=== PATIENT | female | born 1975 | race Native Hawaiian/Other Pacific Islander ===

== ENCOUNTER 2017-04-06 01:29 | Emergency (ER) | payer OTHER ==
[2017-04-06 01:29] VITALS: BMI 23.9
[2017-04-06 01:46] VITALS: TEMP 98.6; O2SAT 100
--- NOTE | 2017-04-06 02:49 | C.PDOC ---
History Of Present Illness 41 y/o female presents to ED with c/o diffuse itchy rash since last night. Patient states she took Claritin 2 hours prior to arrival, without relief. She notes that she had a similar episode a few years ago. No known allergen. No new food or medication. Denies intraoral swelling, difficulty swallowing, SOB, nausea, vomiting, or other associated symptoms. Time Seen by Provider: 04/06/17 01:36 Chief Complaint (Nursing): Allergic Reaction History Per: Patient History/Exam Limitations: no limitations Onset/Duration Of Symptoms: Hrs Current Symptoms Are (Timing): Still Present Associated Symptoms: Skin Rash. denies: Dizziness, Redness, Chest Pain Home/EMS Treatment: denies: Benadryl Recent travel outside of the [place]: No Past Medical History Reviewed: Historical Data, Nursing Documentation, Vital Signs Vital Signs: Last Vital Signs Temp 98.6 F 04/06/17 03:27 Pulse 70 04/06/17 03:27 Resp 20 04/06/17 03:27 BP 126/80 04/06/17 03:27 Pulse Ox 100 04/06/17 03:27 - Medical History PMH: No Chronic Diseases - [facility] Procedures BREAST DX PROCEDURE NEC (07/07/14) EXCISE AXILLARY NODE (08/20/14) PERCUTAN NEEDLE BIOPSY OF BREAST (07/07/14) SUBTOTAL MASTECTOMY (10/01/14) X-RAY NEC AND NOS (07/07/14) Family History: States: Unknown Family Hx - Social History Hx Alcohol Use: No Hx Substance Use: No - Immunization History Hx Tetanus Toxoid Vaccination: No Hx Influenza Vaccination: No Hx Pneumococcal Vaccination: No Review Of Systems Except As Marked, All Systems Reviewed And Found Negative. Constitutional: Negative for: Fever, Chills ENT: Negative for: Mouth Pain, Mouth Swelling, Throat Pain, Throat Swelling Respiratory: Negative for: Cough, Shortness of Breath, Wheezing Gastrointestinal: Negative for: Nausea, Vomiting, Abdominal Pain Skin: Positive for: Rash Neurological: Negative for: Weakness, Numbness, Headache, Dizziness Physical Exam - Physical Exam Appears: Non-toxic, No Acute Distress Skin: Warm, Dry, Rash (diffuse erythematous blanching maculopapular rash) Head: Atraumatic, Normacephalic Eye(s): bilateral: Normal Inspection, EOMI Nose: Normal Oral Mucosa: Moist Tongue: No Swelling Lips: Normal Appearing, No Swelling Gingiva: No Swelling Throat: Normal, No Erythema, No Exudate, No Drooling, No Mass Neck: Supple Chest: Symmetrical Cardiovascular: Rhythm Regular Respiratory: Normal Breath Sounds, No Accessory Muscle Use, No Rales, No Rhonchi , No Stridor, No Wheezing Gastrointestinal/Abdominal: Soft, No Tenderness, No Guarding, No Rebound Back: Normal Inspection Extremity: Normal ROM, Capillary Refill (< 2 sec. ) Neurological/Psych: Oriented x3, Normal Speech, Normal Cognition ED Course And Treatment O2 Sat by Pulse Oximetry: 100 (RA) Pulse Ox Interpretation: Normal Progress Note: Treated with Benadryl, Pepcid, and Prednisone. On reassessment, patient is resting comfortably, with no shortness of breath, intra-oral swelling , or stridor. Patient reports improvement of pruritis. Patient advised to avoid potential allergens and to follow up with physician in 1-2 days. Disposition - Disposition Disposition: HOME/ ROUTINE Disposition Time: 02:48 Condition: STABLE Additional Instructions: Follow up with your primary medical doctor or clinic in 2-5 days for further evaluation. Take medications as prescribed. Return to the emergency department at any time if symptoms persist or worsen. Prescriptions: DiphenhydrAMINE [Benadryl] 25 mg PO Q6 #20 cap predniSONE [Prednisone] 40 mg PO DAILY #8 tab Instructions: Urticaria (ED) - Clinical Impression Clinical Impression: Rash, Allergic urticaria - PA / [employer] / Resident Statement MD/DO has reviewed & agrees with the documentation as recorded. - Scribe Statement The provider has reviewed the documentation as recorded by the Lala Collins All medical record entries made by the Lala were at my direction and personally dictated by me. I have reviewed the chart and agree that the record accurately reflects my personal performance of the history, physical exam, medical decision making, and the department course for this patient. I have also personally directed, reviewed, and agree with the discharge instructions and disposition.
[2017-04-06 03:31] VITALS: BP 126/80; PULSE 70; RESP 20
== END 2017-04-06 03:31 | disposition home or self-care (01) ==
LOC: C.ER 01:29
DX: L50.0 Allergic urticaria (principal)

== ENCOUNTER 2017-04-13 13:27 | Emergency (ER) | payer OTHER ==
[2017-04-13 13:27] VITALS: BMI 23.9
--- NOTE | 2017-04-13 14:09 | C.PDOC ---
History Of Present Illness Patient is a 41 year old female who presents to the ER with a complaint of a diffuse itchy rash for the past 10 days. Patient was seen in the ER on 04/06 for the same rash; was discharged home with Rx of prednisone and benadryl. Patient states medications did not work so she went to PMD on 04/11 who started her on a 2nd round of prednisone and hydroxyzine with no improvement to condition. Denies any exposure to possible allergens, fever, or chills. Time Seen by Provider: 04/13/17 13:42 Chief Complaint (Nursing): Abnormal Skin Integrity History Per: Patient History/Exam Limitations: no limitations Onset/Duration Of Symptoms: Days (10) Current Symptoms Are (Timing): Still Present Quality Of Symptoms: Itching Recent travel outside of the [place]: No Past Medical History Reviewed: Historical Data, Nursing Documentation, Vital Signs Vital Signs: Last Vital Signs Temp 98.3 F 04/13/17 16:15 Pulse 66 04/13/17 16:15 Resp 16 04/13/17 16:15 BP 113/67 04/13/17 16:15 Pulse Ox 98 04/13/17 16:15 - Medical History PMH: No Chronic Diseases - [facility] Procedures BREAST DX PROCEDURE NEC (07/07/14) EXCISE AXILLARY NODE (08/20/14) PERCUTAN NEEDLE BIOPSY OF BREAST (07/07/14) SUBTOTAL MASTECTOMY (10/01/14) X-RAY NEC AND NOS (07/07/14) Family History: States: Unknown Family Hx - Social History Hx Alcohol Use: No Hx Substance Use: No - Immunization History Hx Tetanus Toxoid Vaccination: No Hx Influenza Vaccination: No Hx Pneumococcal Vaccination: No Review Of Systems Constitutional: Negative for: Fever, Chills Skin: Positive for: Rash (Diffuse) Physical Exam - Physical Exam Appears: Non-toxic, No Acute Distress Skin: Warm, Dry, Rash (Diffuse urticarial rash to upper torso, mostly on right side, right breast skin erythematous and warm.) Head: Atraumatic, Normacephalic Oral Mucosa: Moist Tongue: Normal Appearing, No Swelling Lips: Normal Appearing, No Swelling Throat: Normal, No Erythema, No Exudate, No Other (Swelling) Chest: Symmetrical, No Tenderness Cardiovascular: Rhythm Regular, No Murmur Respiratory: Normal Breath Sounds, No Stridor, No Wheezing Neurological/Psych: Oriented x3, Normal Speech, Normal Cognition ED Course And Treatment - Laboratory Results Result Diagrams: 04/13/17 15:11 04/13/17 15:11 O2 Sat by Pulse Oximetry: 100 (Room air) Pulse Ox Interpretation: Normal Progress Note: Blood work ordered. Benadryl, pepcid, and solumedrol administered. Medical Decision Making Medical Decision Making: pt with 10 days of urticaria like rash to whole body. much worse on right side. pt seen in ed once and given steroid s and benadryl with minimal improvement. pt seen by pmd 04/11 and another dose of steroids and hydroxyzine started with topical steroid cream with no improvement. pt to ed today and given iv Benadryl, solumedrol and pepcid with no improvement. labs reviewed;. elevated wbc and bllod glucose; most likely from steroid use. pt to be discharged, stop all steroids and will rx for topical antifungal with close dermatology follow up. Disposition Counseled Patient/Family Regarding: Studies Performed, Diagnosis, Need For Followup, Rx Given - Disposition Referrals: [facility] [Outside] Disposition: HOME/ ROUTINE Disposition Time: 16:49 Condition: STABLE Additional Instructions: Stop taking prednisone. Stop using steroid cream on skin. Start using prescribed lamisil topical cream. Call training instructor service or try [facility] for soonest dermatology appointment. Return to ER for any worsening symptoms. Prescriptions: Terbinafine HCl [Lamisil At] 1 applic TP BID #30 gm Forms: General Discharge Instructions - Clinical Impression Clinical Impression: Rash - Scribe Statement The provider has reviewed the documentation as recorded by the Scribsherice Kulkarni All medical record entries made by the Imanibsherice were at my direction and personally dictated by me. I have reviewed the chart and agree that the record accurately reflects my personal performance of the history, physical exam, medical decision making, and the department course for this patient. I have also personally directed, reviewed, and agree with the discharge instructions and disposition.
[2017-04-13] MEDS ORDERED: methylPREDNISolone 125 MG in Sodium Chloride 0.9% 100 ML IVPB ONE (14:11)
[2017-04-13] MEDS ORDERED: DiphenhydrAMINE 50 mg/ml Inj IVP STA (14:12)
[2017-04-13] MEDS ORDERED: DiphenhydrAMINE 50 mg/ml Inj ONE (15:00)
[2017-04-13] MEDS ORDERED: Sodium Chloride 0.9% 100 ML ONE (15:00)
[2017-04-13 15:17] LABS: BASO % 0.3 % (0.0-2.0); EOS # 0.4 K/uL (0.0-0.7); EOS % 2.7 % (0.0-4.0); HEMATOCRIT 37.7 % (34.0-47.0); LYMPH # 3.5 K/uL (1.0-4.3); LYMPH % 23.4 % (20.0-40.0); MEAN CELL VOLUME 92.9 fL (81.0-99.0); MEAN CORPUSCULAR HEMOGLOBIN 30.8 pg (27.0-31.0); MEAN CORPUSCULAR HGB CONC 33.2 g/dL (33.0-37.0); MEAN PLATELET VOLUME 8.3 fL (7.2-11.7); MONO # 0.8 K/uL (0.0-0.8); MONO % 5.4 % (0.0-10.0); RED CELL DISTRIBUTION WIDTH 12.5 % (11.5-14.5)
[2017-04-13 15:20] LABS: WHITE BLOOD COUNT 14.8 K/uL (4.8-10.8)
[2017-04-13 15:26] LABS: CHLORIDE 102 mmol/L (98-107); POTASSIUM 3.5 mmol/L (3.6-5.2); SODIUM 137 mmol/L (132-148)
[2017-04-13 15:29] LABS: BLOOD UREA NITROGEN 10 mg/dL (7-17); CARBON DIOXIDE 22 mmol/L (22-30); GFR AFRICAN-AMERICAN > 60
[2017-04-13 15:30] LABS: CALCIUM 8.8 mg/dl (8.6-10.4); GLUCOSE,RANDOM 190 mg/dL (65-105)
[2017-04-13 16:15] VITALS: BP 113/67; PULSE 66; RESP 16; TEMP 98.3
[2017-04-13 16:49] VITALS: O2SAT 100
== END 2017-04-13 17:08 | disposition home or self-care (01) ==
LOC: C.ER 13:27
DX: R21 Rash and other nonspecific skin eruption (principal)
CPT/HCPCS: 80048; 85025; 96365; 96375; 99284; J1200; J2930